=== PATIENT | male | born 1945 | race Caucasian/White ===

== ENCOUNTER 2022-06-06 04:45 | Outpatient (CLI) | payer MEDICARE, SELFPAY ==
[2022-06-06] MEDS: Albuterol HFA 18 GM 200 PUFF INH IH (11:18)
[2022-06-06] MEDS: Inhaler, Assist Device 1 EACH MC (11:19)
--- NOTE | 2022-06-07 16:20 | W.PFT ---
Date of service: 06/06/22 Time of Service: 10:02 Pulmonary Function Test Result Requesting Provider Perlita Read Indications: Dyspnea Interpretation Spirometry: There is no airflow limitation. There is no significant bronchodilator response. Lung Volumes: There is mild restrictive lung disease Diffusion Capacity: There is a mildly decreased diffusion Airway Pressure: Normal airways resistance. Impression Mild restrictive lung disease. This could represent interstitial lung disease in the correct clinical context. Recommend high resolution chest CT for further evaluation if clinically appropriate. Clinical Correlation therefore is recommended.
== END 2022-06-06 04:46 | disposition home or self-care (01) ==
PROVIDERS: PCP Family Medicine; Visit Provider Family Medicine
DX: R06.02 Shortness of breath (principal); R06.09 Other forms of dyspnea; J98.4 Other disorders of lung
CPT/HCPCS: 94060; 94726; 94729